=== PATIENT | male | born 1965 | race Caucasian/White ===

== ENCOUNTER → 2017-02-22 | Outpatient (CLI) | payer OTHER ==
[~2017-02-22] MED LIST: ALPR1TAB2 PO; AMPH20TA2 PO; HYDR-3240 PO; TRAZ100T15 PO
== END ==
LOC: RAD 18:35
DX: Z02.9 Encounter for administrative examinations, unspecified (principal)

== ENCOUNTER 2017-04-27 17:13 | Emergency (ER) | payer SELFPAY ==
[~2017-04-27] VITALS: Ht 168.9 cm; Wt 72.3 kg
[2017-04-27 17:35] VITALS: BP 135/93
== END 2017-04-27 19:04 | disposition left against medical advice (07) ==
LOC: ED 18:58
DX: K92.0 Hematemesis (principal); Z53.21 Procedure and treatment not carried out due to patient leaving prior to being seen by health care provider

== ENCOUNTER 2017-12-24 16:10 | Emergency (ER) | payer MEDICAID ==
[~2017-12-24] VITALS: Ht 167.6 cm; Wt 72.0 kg
[~2017-12-24 16:10] MED LIST changes: +TRAZ-137 PO; -TRAZ100T15 PO
[2017-12-24] MEDS ORDERED: HYDROcodone/APAP 5/325 TABLET ONE (16:43)
[2017-12-24] MEDS ORDERED: HYDROcodone/APAP 5/325 TABLET PO ONE (17:00)
[2017-12-24 17:18] VITALS: BP 145/87
== END 2017-12-24 17:20 | disposition home or self-care (01) ==
LOC: ED 16:49
DX: K04.7 Periapical abscess without sinus (principal); K02.9 Dental caries, unspecified
CPT/HCPCS: 99283

== ENCOUNTER 2018-03-16 13:40 | Emergency (ER) | payer MEDICAID, OTHER ==
[~2018-03-16] VITALS: Ht 167.6 cm; Wt 71.3 kg
[2018-03-16 13:51] VITALS: BP 122/83
[2018-03-16] MEDS ORDERED: HYDROcodone/APAP 5/325 TABLET PO ONE (14:30)
[2018-03-16] MEDS ORDERED: HYDROcodone/APAP 5/325 TABLET ONE (14:41)
== END 2018-03-16 14:57 | disposition home or self-care (01) ==
LOC: ED 14:37
DX: M77.9 Enthesopathy, unspecified (principal); G89.29 Other chronic pain
CPT/HCPCS: 99283

== ENCOUNTER 2018-07-05 14:26 | Emergency (ER) | payer OTHER ==
[~2018-07-05] VITALS: Ht 170.2 cm; Wt 68.2 kg
--- NOTE | 2018-07-05 14:48 | NUR ---
THIS IS A 52 YO MALE WHO PRESENTS TO THE ER C/O COUGH, CONGESTION AND BODY ACHES, BILAT FLANK PAIN, SUPRAPUBIC PAIN AND PAINFUL URINATON X 3 DAYS. PT AO X 4. SKIN WARM TO TOUCH BUT DRY. RESP EVEN AND UNLABORED. OCCAISIONAL LOOSE COUGH WITH WHITE SPUTUM NOTED BY RN. PT ON CONT BP AND O2 MONITORS. REGINALDO MANCILLA HAS BEEN TO BEDSIDE FOR EVAL. CALL LIGHT WITHIN REACH. WILL CONT TO MONITOR PT.
[2018-07-05] MEDS ORDERED: ACETAMINOPHEN 500 MG TABLET PO ONE (15:30)
[2018-07-05] MEDS ORDERED: IBUPROFEN 800 MG TABLET PO ONE (15:30)
[2018-07-05] MEDS ORDERED: IBUPROFEN 800 MG TABLET ONE (15:33)
[2018-07-05 15:34] VITALS: BP 105/63
[2018-07-05] MEDS ORDERED: ACETAMINOPHEN 500 MG TABLET ONE (15:34)
--- NOTE | 2018-07-05 15:57 | NUR ---
RN ATTEMPTED TO MEDICATE PT FOR FEVER/PAIN. PT REFUSED TO TAKE MEDICATION STATING "I WON'T KEEP THAT DOWN AND OVER THE COUNTER MEDS DONT WORK FOR ME. DON'T YOU KNOW I WAS IN THE HOSPITAL ON DEMEROL FOR 2 MONTHS! I'M NOT TAKING THAT!". RN DISCUSSED WITH PT THE NEED TO TAKE AN ANTIPYRETIC FOR FEVER, PT VERBALIZED UNDERSTANDING AND CONT TO REFUSE TYLENOL OR MOTRIN. REGINALDO MANCILLA MADE AWARE. WILL CONT TO MONITOR PT.
[2018-07-05 16:12] LABS: RAPID INFLUENZA A POSITIVE (Negative); RAPID INFLUENZA B Negative (Negative)
--- NOTE | 2018-07-05 16:12 | NUR ---
RN ATTEMPTED TO DISCUSS ORDERING DIFFERENT MEDS FOR PT, BUT PA WAS BUSY. RN WENT TO DISCUSS THIS WITH PT. PT BECAME ANGRY AND SAID "YOU GUYS ARE FIRED. MY INSURANCE PAYS FOR THIS AND YOU JUST LOST IT. I'M GOING TO [place]". RN DISCUSSED POC WITH PT AND RISKS OF LEAVING UP TO AND INCLUDING SEPSIS AND . PT VERBALIZED UNDERSTANDING, REFUSED MEDICATIONS OFFERED BY RN AND REQUESTED HIS IV TO BE PULLED. [facility] PAPERWORK FILLED OUT.
[2018-07-05] MEDS ORDERED: OSELTAMIVIR 75 MG CAPSULE PO ONE (16:30)
== END 2018-07-05 16:16 | disposition left against medical advice (07) ==
LOC: ED 16:08
DX: J10.1 Influenza due to other identified influenza virus with other respiratory manifestations (principal); J40 Bronchitis, not specified as acute or chronic; J31.0 Chronic rhinitis; M79.10 Myalgia, unspecified site
CPT/HCPCS: 71046; 87400; 99284

== ENCOUNTER 2020-02-08 20:20 | Emergency (ER) | payer OTHER ==
[~2020-02-08] VITALS: Ht 170.2 cm; Wt 75.1 kg
[~2020-02-08 20:20] MED LIST changes: -TRAZ-137 PO; +TRAZ-175 PO
[2020-02-08 20:22] VITALS: BP 137/92
--- NOTE | 2020-02-08 23:00 | NUR ---
SADDLE STITCH OPERATOR: CALLED FOR PT. PT NOT IN LOBBY.
--- NOTE | 2020-02-08 23:23 | NUR ---
FLESHING MACHINE OPERATOR: CALLED FOR PT. PT NOT IN LOBBY.
--- NOTE | 2020-02-08 23:42 | NUR ---
CONSULTING SERVICES PROJECT MANAGER: PT CALLED FOR PT. PT NOT IN LOBBY AT THIS TIME.
== END 2020-02-08 23:44 | disposition left against medical advice (07) ==
LOC: ED 23:00
DX: M79.632 Pain in left forearm (principal)
CPT/HCPCS: 99283

== ENCOUNTER 2020-11-30 12:03 | Emergency (ER) | payer OTHER ==
[~2020-11-30] VITALS: Ht 167.6 cm; Wt 70.0 kg
[~2020-11-30 12:03] MED LIST changes: +HYDR-2214 PO; -HYDR-3240 PO
[2020-11-30 13:15] LABS: ANION GAP 8 mmol/L (5-15); CALCIUM 8.3 mg/dL (8.5-10.1); CHLORIDE 103 mmol/L (98-107); CREATININE 1.08 mg/dL (0.7-1.3)
[2020-11-30 13:16] LABS: ALBUMIN 3.3 g/dL (3.4-5.0)
[2020-11-30 13:29] LABS: MEAN CORPUSCULAR HEMOGLOBIN 31.1 pg (27.5-34.5); MEAN CORPUSCULAR HGB CONC 35.9 g/dL (33.2-36.2); MEAN PLATELET VOLUME 9.9 fL (7.4-10.4); PLATELET COUNT 78 x10^3/uL (130-400); RED BLOOD COUNT 5.54 x10^6/uL (4.38-5.82); RED CELL DISTRIBUTION WIDTH 13.7 % (9.4-14.8)
--- NOTE | 2020-11-30 13:43 | NUR ---
PT MOVED TO ROOM AFTER LAB CALLED WITH CRITICAL VALUE
[2020-11-30 14:00] LABS: <PLATELET ESTIMATE> DECREASED; <RBC MORPHOLOGY> NORMAL; BAND#(MANUAL) 0.11 x10^3/uL; BANDS%(MANUAL) 6 % (0-7); LYMPH#(MANUAL) 0.59 x10^3/uL (1-3.4); LYMPHS% (MANUAL) 31 % (22-44); MONOS#(MANUAL) 0.15 x10^3/uL (0.3-2.7); MONOS% (MANUAL) 8 % (2-9); SEG#(MANUAL) 1.05 x10^3/uL (1.8-6.8); SEGS% (MANUAL) 55 % (42-75)
[2020-11-30] MEDS ORDERED: ONDANSETRON 2MG/ML, 2ML IVPush ONE (14:00)
[2020-11-30] MEDS ORDERED: SODIUM CHLORIDE 0.9% 1,000ML IVBOLUS ONE (14:00)
[2020-11-30] MEDS ORDERED: KETOROLAC 15 MG/1ML IVPush ONE (14:00)
[2020-11-30 14:01] LABS: <PLT MORPHOLOGY> NORMAL PLT MORPH
--- NOTE | 2020-11-30 14:07 | NUR ---
CONTACT WITH PT. 55 YR OLD MALE HERE WITH C/O MY 'S DAUGHTER WAS DX COVID LAST WEDNESDAY. SAT IT HIT ME. MY FORHEAD FEELS LIKE IT WANTS TO EXPLODE. I GOT CHILLS, MY FEVER WILL GO UP AND COME BACK DOWN. ITS ALMOST IMPOSSIBLE TO SLEEP AT NIGHT. I LOST MY TASTE AND SMELL" PT CURRENTLY COVERED HEAD TO TOE WITH A BLANKET.
--- NOTE | 2020-11-30 14:15 | NUR ---
no iv in place for ct exam
[2020-11-30] MEDS ORDERED: ONDANSETRON 2MG/ML, 2ML ONE (14:57)
[2020-11-30] MEDS ORDERED: ACETAMINOPHEN 325 MG TABLET PO ONE (15:00)
[2020-11-30] MEDS ORDERED: ACETAMINOPHEN 325 MG TABLET ONE (15:18)
--- NOTE | 2020-11-30 15:21 | NUR ---
PT MEDICATED FOR FEVER ORDERED Addendum: 11/30/20 at 1545 by AMANDA PT PROVIDED WITH URINAL, UPDATED ON POC. UNDERSTANDING VERBALIZED.
--- NOTE | 2020-11-30 15:48 | NUR ---
PT IN RADIOLOGY
--- NOTE | 2020-11-30 15:51 | NUR ---
PT RETURN TO ROOM. IV INFUSING WITHOUT REDNESS/SWELLING. CONT TO BE COVERED UP WITH BLANKET. PT HAS BEEN EDUCATED ON COOLING MEASURES.
[2020-11-30] MEDS ORDERED: OMNIPAQUE 350 MG/ML, 100ML BOTTLE ONE (16:01)
--- NOTE | 2020-11-30 16:23 | NUR ---
PT DENIES CHANGE IN PAIN LEVEL. SR PER MONITOR. AUTO BP AND PULSE OX IN PLACE. IV INFUSING WITHOUT REDNESS/SWELLING. TEMP DECREASED. PO FLUIDS AT BEDSIDE. NO VOMITING NOTED. URINE SPECIMAN SENT TO LAB. PT AWARE OF WAITING FOR TEST RESULTS. NO NEEDS EXPRESSED AT THIS TIME.
[2020-11-30 17:09] LABS: MICROSCOPIC INDICATED
--- NOTE | 2020-11-30 18:14 | NUR ---
IV DC'D WITH CANNULA INTACT. REVIEWED DC INSTRUCTIONS WITH PT. UNDERSTANDING VERBALIZED. PT LEFT VIA W/C "I FEEL SO WEAK"
[2020-11-30 18:15] VITALS: BP 110/61
== END 2020-11-30 18:17 | disposition home or self-care (01) ==
LOC: ED 14:51
DX: U07.1 COVID-19 (principal); J12.82 Pneumonia due to coronavirus disease 2019; R11.2 Nausea with vomiting, unspecified; E86.0 Dehydration; R10.84 Generalized abdominal pain; R94.31 Abnormal electrocardiogram [ECG] [EKG]
CPT/HCPCS: 36415; 71045; 74177; 80048; 81001; 82040; 83690; 85025; 93005; 96361; 96374; 96375; 99285; J1885; J2405; J7030; Q9967; U0003; U0005